=== PATIENT | female | born 1980 | race Caucasian/White ===

== ENCOUNTER 2018-07-25 11:02 | Emergency (ER) | payer OTHER ==
[~2018-07-25] VITALS: Ht 165.1 cm; Wt 65.8 kg
[2018-07-25] MEDS ORDERED: LISINOPRIL10 MG PO (11:06)
[2018-07-25] MEDS ORDERED: NAPROSYN500 MG PO (12:02)
== END 2018-07-25 12:00 | disposition home or self-care (01) ==
LOC: ER 11:02
DX: M79.671 Pain in right foot (principal); F17.210 Nicotine dependence, cigarettes, uncomplicated; Z90.710 Acquired absence of both cervix and uterus